=== PATIENT | female | born 1995 | race Caucasian/White ===

== ENCOUNTER 2022-02-26 16:25 | Emergency (ER) | payer MEDICAID ==
[~2022-02-26] VITALS: Ht 165.1 cm; Wt 52.6 kg
[2022-02-26 17:05] VITALS: BP 110/68
[2022-02-26 18:43] LABS: BASOPHILS % (AUTO) 0.7 % (0.0-2.0); EOSINOPHILS # (AUTO) 0.4 K/uL (0-0.4); EOSINOPHILS % (AUTO) 6.9 % (0.0-4.0); HEMOGLOBIN 12.9 g/dL (12.0-16.0); LYMPHOCYTES # (AUTO) 1.7 K/uL (2.5-16.5); MEAN CORPUSCULAR HEMOGLOBIN 28 pg (27-31); MEAN CORPUSCULAR HGB CONC 33 g/dL (33-37); MEAN CORPUSCULAR VOLUME 83.8 fL (80-94); MONOCYTES # (AUTO) 0.5 K/uL (0.8-1.0); MONOCYTES % (AUTO) 9.5 % (1.7-9.3); NEUTROPHILS # (AUTO) 2.8 K/uL (1.8-7.7); NEUTROPHILS % (AUTO) 50.9 % (42.2-75.2); PLATELET COUNT (AUTO) 298 K/uL (140-450); RED BLOOD CELL COUNT(AUTO) 4.65 MIL/uL (4.20-5.40); RED CELL DISTRIBUTION WIDTH 14.1 % (11.6-13.7); WHITE BLOOD COUNT (AUTO) 5.5 K/uL (4.8-10.8)
[2022-02-26 19:09] LABS: ALBUMIN 4.4 g/dL (3.4-5.0); ANION GAP 14.3 (8-16); CARBON DIOXIDE 26.8 mmol/L (21-32); CREATININE 0.7 mg/dL (0.6-1.3); POTASSIUM 4.1 mmol/L (3.5-5.1); TOTAL BILIRUBIN 0.4 mg/dL (0.0-1.0)
--- NOTE | 2022-02-26 19:48 | NUR ---
PT TAKEN TO ER BED 11
--- NOTE | 2022-02-26 19:59 | NUR ---
26 yo f bib self with c/c of 02/19 upper abd pain rad to back 2wks. +nausea. states she went to er 2days again given gi cocktail with no relief. pt denies urine changes. denies hx, rx and allegies lmp:02/20
[2022-02-26] MEDS ORDERED: FAMOTIDINE 20 MG/2 ML VIAL IVP ONE (20:50)
--- NOTE | 2022-02-26 21:57 | NUR ---
pt awake and alert all needs met at this time.
--- NOTE | 2022-02-26 21:59 | NUR ---
taken to ct via w/c
[2022-02-26] MEDS ORDERED: FAMOTIDINE 20 MG/2 ML VIAL ONE (22:54)
[2022-02-26] MEDS ORDERED: FAMO-90 PO (22:57)
--- NOTE | 2022-02-26 23:06 | NUR ---
PATIENT REFUSED. EXPLAINED THE PURPOSE OF THE MEDICATION, AND STILL REFUSED. STATED "THAT SHE NEEDED TO KNOW EVERY INGREDIENT IN THE MEDICATION AND IF THERE WAS A BOX WITH IT." PT. DIDNT WANT TO TAKE MED AT THIS TIME AND IS CURRENTLY GOOGLING IT . STATED THAT HER BF DAD IS A DOCTOR AND SHE NEEDS AN ULTRASOUND. MD AWARE.
[2022-02-26] MEDS ORDERED: SUCR1TAB35 PO (23:27)
--- NOTE | 2022-02-27 00:54 | NUR ---
PT IS AWAKE AND ALERT. TALKING ON THE PHONE, ALL NEEDS MET AT THIS TIME. BED LOCKED IN LOWEST POSITION
--- NOTE | 2022-02-27 01:42 | NUR ---
ERMD AT BEDSIDE.
[2022-02-27 01:50] VITALS: BP 116/66
--- NOTE | 2022-02-27 01:50 | NUR ---
Patient discharged with v/s stable. Written and verbal after care instructions given and explained. Patient alert, oriented and verbalized understanding of instructions. Ambulatory with steady gait. All questions addressed prior to discharge. ID band removed. Patient advised to follow up with PMD. Rx of PEPCID AND CARAFATE given. Patient educated on indication of medication including possible reaction and side effects. Opportunity to ask questions provided and answered.
== END 2022-02-27 01:50 | disposition home or self-care (01) ==
LOC: MED 16:25
DX: R10.13 Epigastric pain (principal)
CPT/HCPCS: 36415; 74177; 80053; 81002; 81025; 83690; 85025; 99285; Q9967; J3490